=== PATIENT | female | born 1950 | race Caucasian/White ===

== ENCOUNTER 2023-06-09 12:39 | Observation (INO) | payer MEDICARE, OTHER ==
[2023-06-09] VITALS (30 sets, daily range): BP systolic 103–173; BP diastolic 58–90
[~2023-06-09] VITALS: Ht 160 cm; Wt 71.0 kg
[~2023-06-09 12:39] MED LIST: BAYER LOW81 MG OR; CALCIUM + D600 MG OR; CARDIZEM C2 OR; CIPROFLOXACN500 MG PO; FISH OIL1000 MG PO; GNP RED YEAST RICE OR; PRAVACHOL80 MG PO; PREMARIN0.3 MG PO; PROTONIX40 M2 PO; SYNTHROID150 MCG PO; VITAMIN C500 MG OR
[2023-06-09] MEDS ORDERED: methylPREDNISolone SODIUM SUCC 125 MG/2 ML SDV IV ONE (12:55)
--- NOTE | 2023-06-09 13:00 | NUR ---
PT AMBULATED TO ER ROOM 9. C/O SOB SINCE LAST NIGHT. PROVIDER NOTIFIED. CALL LLIGHT WITHIN REACH.
[2023-06-09 13:17] LABS: EOS% 2.4 % (0-8); HEMATOCRIT 38.8 % (37.0-47.0); HEMOGLOBIN 13.2 g/dl (12.0-16.0); IMMATURE GRANULOCYTES 0.4 % (0.0-5.0); LYMPH% 23.9 % (15-41); MEAN CELL VOLUME 83.1 fL CALC (80.0-100.0); MEAN CORPUSCULAR HGB 28.3 pG CALC (26.0-32.0); MONO% 7.1 % (2-13); NEUT# 5.97 thou/uL (2.00-7.15); NEUT% 65.2 % (42-76); RED BLOOD COUNT 4.67 mill/uL (4.20-5.60)
[2023-06-09 13:30] LABS: ALBUMIN 4.8 g/dL (3.2-5.0); ALKALINE PHOSPHATASE 108 u/l (38-126); ANION GAP 16 (6-22 (CALC)); BILIRUBIN, TOTAL 0.5 mg/dL (0.02-1.3); BUN 17 mg/dL (8-23); BUN/CREATININE RATIO 21 (12-20 (CALC)); CARBON DIOXIDE 25 mmol/l (22-30); CHLORIDE 101 mmol/l (95-108); CREATININE 0.8 mg/dL (0.5-1.0); GFR FOR AFR.AMER. > 60 ML/MIN (>=60 (CALC)); GFR OTHER RACES > 60 ML/MIN (>=60 (CALC)); POTASSIUM 3.4 mmol/l (3.5-5.1); SGOT/AST 30 u/l (9-36); SODIUM 138 mmol/l (137-146); TOTAL PROTEIN 8.2 g/dL (6.3-8.2)
[2023-06-09] MEDS ORDERED: LEVOTHYROXIN137 MCG PO (13:36)
[2023-06-09] MEDS ORDERED: CRESTOR10 MG PO (13:38)
[2023-06-09] MEDS ORDERED: HYDROCHLOROTH12.5 MG PO (13:40)
[2023-06-09] MEDS ORDERED: LOSARTAN POTASS25 MG PO (13:41)
[2023-06-09] MEDS ORDERED: METFORMIN500 M2 PO (13:42)
--- NOTE | 2023-06-09 14:00 | NUR ---
pt still feels sob, no apparent distress and vitals are stable, no strider is heard
--- NOTE | 2023-06-09 15:00 | NUR ---
pt alert and oriented, no apparent distress
[2023-06-09 15:01] LABS: URINE BILIRUBIN - DIPSTICK Negative (NEGATIVE); URINE BLOOD DIPSTICK Negative (NEGATIVE); URINE GLUCOSE - DIPSTICK Negative (NEGATIVE); URINE KETONE Negative (NEGATIVE); URINE LEUK ESTERASE Negative (NEGATIVE); URINE NITRITE - DIPSTICK Negative (Negative); URINE PROTEIN - DIPSTICK Negative (NEG-TRACE); URINE UROBILINOGEN - DIPSTICK 0.2 E.U./dL (0.2)
[2023-06-09 15:02] LABS: URINE COLOR Yellow
[2023-06-09] MEDS ORDERED: IPRATROPIUM-Albuterol 0.5MG-2.5MG/3 ML NEB ONE (15:15)
[2023-06-09] MEDS ORDERED: SODIUM CHLORIDE 0.9% 1,000 ML IV ONE (15:30)
[2023-06-09] MEDS ORDERED: AZITHROMYCIN 500 MG in SODIUM CHLORIDE 0.9% 250 ML IV ONE (15:35)
--- NOTE | 2023-06-09 16:00 | NUR ---
pt started on abx, and fluids. pt no apparent distress bedside
[2023-06-09] MEDS ORDERED: ACETAMINOPHEN 325 MG/TAB PO PRN (18:50)
[2023-06-09] MEDS ORDERED: MAGNESIUM HYDROXIDE 30 ML UDC PO PRN (18:50)
[2023-06-09] MEDS ORDERED: SODIUM CHLORIDE 0.9% 1,000 ML IV PRN (18:50)
[2023-06-09] MEDS ORDERED: IPRATROPIUM-Albuterol 0.5MG-2.5MG/3 ML NEB SCH (19:00)
[2023-06-09] MEDS ORDERED: ENOXAPARIN SODIUM 40 MG/0.4 ML SYR SC SCH (21:00)
[2023-06-09] MEDS ORDERED: methylPREDNISolone Sod Succ 40 MG/ML SDV IV SCH (22:00)
[2023-06-10] VITALS (7 sets, daily range): BP systolic 123–166; BP diastolic 51–84
--- NOTE | 2023-06-10 03:16 | NUR ---
PT WAS ADMITTED TO RM [id number], THIS NURSE TRANSPORTED PT TO ROOM BY [facility], AND TELEMETRY WAS PLACED BEFORE LEAVING ER. REPORT WAS GIVEN TO CONCHA. PT TOLERATED MOVE.
[2023-06-10 05:21] LABS: BASO% 0.1 % (0-3); HEMATOCRIT 35.2 % (37.0-47.0); HEMOGLOBIN 12.2 g/dl (12.0-16.0); IMMATURE GRANULOCYTES 0.9 % (0.0-5.0); LYMPH% 7.1 % (15-41); MEAN CELL VOLUME 84.8 fL CALC (80.0-100.0); MEAN CORPUSCULAR HGB 29.4 pG CALC (26.0-32.0); MEAN CORPUSCULAR HGB CONC 34.7 g/dL CAL (32.0-36.0); MONO% 0.5 % (2-13); NEUT# 10.61 thou/uL (2.00-7.15); NEUT% 91.4 % (42-76); RED BLOOD COUNT 4.15 mill/uL (4.20-5.60); RED CELL DISTRI WIDTH 13.3 % (11.5-15.5)
[2023-06-10 05:45] LABS: ANION GAP 14 (6-22 (CALC)); BUN 15 mg/dL (8-23); BUN/CREATININE RATIO 22 (12-20 (CALC)); CARBON DIOXIDE 24 mmol/l (22-30); CHLORIDE 104 mmol/l (95-108); CREATININE 0.7 mg/dL (0.5-1.0); GFR FOR AFR.AMER. > 60 ML/MIN (>=60 (CALC)); GFR OTHER RACES > 60 ML/MIN (>=60 (CALC)); MAGNESIUM 1.1 mg/dL (1.6-2.3); POTASSIUM 3.6 mmol/l (3.5-5.1); SODIUM 138 mmol/l (137-146)
--- NOTE | 2023-06-10 07:00 | NUR ---
REPORT RECEIVED FROM JOSE,RN
--- NOTE | 2023-06-10 08:20 | NUR ---
PT OOB RESTING IN RECLINER,A&O X3;PT DENIES ANY CURRENT PAIN, PAIN SCALE AND REPORTING EDUCATED;RESPIRATIONS EVEN AND UNLABORED ON O2 @ 2L VIA NC;ASSESSMENT COMPLETED;SKIN INTACT;TELE MONITORING IN PLACE;IV SITE PATENT INFUSING NS PER ORDER;PT DENIES ANY ADDITIONAL NEEDS AND IS ENCOURAGED TO CALL FOR ASSISTANCE IF NEEDED;FALL PRECAUTIONS REMAIN IN PLACE WITH CALL LIGHT IN REACH;FREQUENT ROUNDS MADE.
--- NOTE | 2023-06-10 11:25 | NUR ---
PT OOB RESTING IN RECLINER WITH SPOUSE AT BEDSIDE;RESPIRATIONS EVEN AND UNLABORED ON 02 @ 2L VIA NC;PT DENIES ANY CURRENT PAIN OR NEEDS;TELE MONITORING IN PLACE;IV SITE REMAINS PATENT;ENCOURAGED TO CALL FOR ASSISTANCE IF NEEDED;CALL LIGHT IN REACH;FREQUENT ROUNDS MADE.
--- NOTE | 2023-06-10 13:02 | NUR ---
AT BEDSIDE DISCUSSING POC WITH PT AND SPOUSE.
[2023-06-10] MEDS ORDERED: DEXTROSE 250 ML IV PRN (13:10)
[2023-06-10] MEDS ORDERED: CELEBREX100 M1 PO (13:22)
[2023-06-10] MEDS ORDERED: GABAPENTIN400 M2 PO (13:22)
[2023-06-10] MEDS ORDERED: MECLIZINE25 MG PO (13:23)
[2023-06-10] MEDS ORDERED: GABAPENTIN100 MG PO (13:23)
[2023-06-10] MEDS ORDERED: POTASSIUM CHLORIDE 20 MEQ/TAB PO SCH (14:00)
[2023-06-10] MEDS ORDERED: DILTIAZEM HCl COATED BEADS 180 MG/CAP PO SCH (14:00)
[2023-06-10] MEDS ORDERED: ASPIRIN EC 81 MG/TAB PO SCH (14:00)
[2023-06-10] MEDS ORDERED: PANTOPRAZOLE SODIUM Sesquihydr 40 MG/TAB PO SCH (14:00)
[2023-06-10] MEDS ORDERED: MAGNESIUM SULFATE HEPTAHYDRATE 50 ML IV SCH (14:00)
[2023-06-10] MEDS ORDERED: IPRATROPIUM BROMIDE 0.5 MG/2.5 ML SOL IN SCH (15:00)
[2023-06-10] MEDS ORDERED: LEVALBUTEROL HCL 1.25 MG/3 ML VIAL NEB SCH (15:00)
--- NOTE | 2023-06-10 15:30 | NUR ---
PT REMAINS OOB RESTING IN RECLINER;RESPIRATIONS EVEN AND UNLABORED ON O2 @ 2L VIA NC;PT DENIES ANY CURRENT PAIN OR NEEDS;TELE MONITORING IN PLAE;IV SITE PATENT INFUSING NS @ 100ML/HR,SITE APPEARS HEALTHY;PT DENIES ANY ADDITIONAL NEEDS AND IS ENCOURAGED TO CALL FOR ASSISTANCE IF NEEDED;FALL PRECAUTIONS REMAIN IN PLACE WITH CALL LIGHT IN REACH;FREQUENT ROUNDS MADE.
[2023-06-10] MEDS ORDERED: INSULIN LISPRO 100 UNITS/ML ML SC SCH (17:00)
[2023-06-10] MEDS ORDERED: AZITHROMYCIN 500 MG in SODIUM CHLORIDE 0.9% 250 ML IV SCH (18:00)
[2023-06-10] MEDS ORDERED: LOSARTAN Potassium 25 MG/TAB PO SCH (18:00)
[2023-06-10] MEDS ORDERED: ATORVASTATIN CALCIUM 40 MG/TAB PO SCH (21:00)
[2023-06-11 01:12] VITALS: BP 137/63
[2023-06-11 04:27] VITALS: BP 141/69
[2023-06-11] MEDS ORDERED: LEVOTHYROXINE SODIUM 25 MCG/TAB PO SCH (06:00)
[2023-06-11] MEDS ORDERED: LEVOTHYROXINE SODIUM 112 MCG/TAB PO SCH (06:00)
[2023-06-11 06:07] LABS: BASO% 0.1 % (0-3); HEMATOCRIT 32.4 % (37.0-47.0); HEMOGLOBIN 10.9 g/dl (12.0-16.0); IMMATURE GRANULOCYTES 0.9 % (0.0-5.0); MEAN CELL VOLUME 86.4 fL CALC (80.0-100.0); MEAN CORPUSCULAR HGB 29.1 pG CALC (26.0-32.0); MEAN CORPUSCULAR HGB CONC 33.6 g/dL CAL (32.0-36.0); MONO% 5.6 % (2-13); NEUT# 14.76 thou/uL (2.00-7.15); NEUT% 84.4 % (42-76); RED BLOOD COUNT 3.75 mill/uL (4.20-5.60)
[2023-06-11 06:27] LABS: ANION GAP 13 (6-22 (CALC)); BUN 16 mg/dL (8-23); BUN/CREATININE RATIO 22 (12-20 (CALC)); CARBON DIOXIDE 23 mmol/l (22-30); CHLORIDE 107 mmol/l (95-108); CREATININE 0.7 mg/dL (0.5-1.0); GFR FOR AFR.AMER. > 60 ML/MIN (>=60 (CALC)); GFR OTHER RACES > 60 ML/MIN (>=60 (CALC)); POTASSIUM 3.8 mmol/l (3.5-5.1); SODIUM 139 mmol/l (137-146)
--- NOTE | 2023-06-11 06:55 | NUR ---
REPORT RECEIVED FROM SHANE MARIO
[2023-06-11 07:10] VITALS: BP 148/71
[2023-06-11] MEDS ORDERED: SODIUM CHLORIDE 0.9% 500 ML IV SCH (08:30)
[2023-06-11] MEDS ORDERED: methylPREDNISolone Sod Succ 40 MG/ML SDV IV SCH (09:00)
--- NOTE | 2023-06-11 09:40 | NUR ---
PT OOB RESTING IN RECLINER WITH SPOUSE AT BEDSIDE;PT DENIES ANY CURRENT PAIN OR DISCOMFORTS,PAIN SCALE AND REPORTING EDUCATED;RESPIRATIONS EVEN AND UNLABORED ON O2 @ 2L VIA NC;TELE MONITORING IN PLACE;IV SITE TO LAC PATENT INFUSING NS @ 100ML/HR, PER ORDER;ACCUCHECK 131, NO COVERAGE WAS NEEDED;PT ENCOURAGED TO CALL FOR ASSISTANCE IF NEEDED;FALL PRECAUTIONS IN PLACE WITH CALL LIGHT IN REACH;FREQUENT ROUNDS MADE.
--- NOTE | 2023-06-11 09:53 | NUR ---
PT AMBULATING HALLWAYS WITH GUTIERREZ,RT FOR OXYGEN WALK QUALIFICATION TEST.
[2023-06-11 10:22] VITALS: BP 125/62
[2023-06-11] MEDS ORDERED: MAGNESIUM SULFATE HEPTAHYDRATE 50 ML IV SCH (11:30)
[2023-06-11] MEDS ORDERED: POTASSIUM CHLORIDE 20 MEQ/TAB PO SCH (11:30)
--- NOTE | 2023-06-11 11:55 | NUR ---
PT OOB RESTING IN RECLINER WITH SPOUSE AT BEDSIDE;RESPIRATIONS EVEN AND UNLABORED ON RA;PT DENIES ANY CURRENT PAIN OR DISCOMFORTS;TELE MONITORING IN PLACE;IV SITE TO LAC REMAINS PATENT;ACCUCHECK 155, PT COVERED WITH SLIDING SCALE INSULIN PER ORDER;PT ENCOURAGED TO CALL FOR ASSISTANCE IF NEEDED;FALL PRECAUTIONS REMAIN IN PLACE WITH CALL LIGHT IN REACH;FREQUENT ROUNDS MADE.
[2023-06-11] MEDS ORDERED: ALBUTEROL SULFATE 8 GM INH IN PRN (12:55)
[2023-06-11] MEDS ORDERED: ADVAIR DISK1 IN (14:26)
[2023-06-11] MEDS ORDERED: VENTOLIN HFA108 MCG IN (14:26)
[2023-06-11] MEDS ORDERED: SPIRIVA RE2.5 MCG/AC IN (14:26)
[2023-06-11] MEDS ORDERED: DILTIAZEM HCL180 MG PO (14:26)
[2023-06-11] MEDS ORDERED: MONTELUKAST SOD10 MG PO (14:44)
[2023-06-11] MEDS ORDERED: NEBULIZER (14:45)
[2023-06-11] MEDS ORDERED: CEFDINIR300 MG PO (14:45)
[2023-06-11] MEDS ORDERED: ZPAK PO (14:45)
[2023-06-11] MEDS ORDERED: PROVENTIL0.083 % IN (14:47)
--- NOTE | 2023-06-11 15:08 | NUR ---
ALL DISCHARGE INSTRUCTIONS PROVIDED AT THIS TIME TO PT AND SPOUSE.PT INSTRUCTED TO F/U WITH PCP AND PULMONOLOGY. PHONE NUMBER PROVIDED TO AMA FOR A NEW PATIENT;PT INSTRUCTED TO TAKE MEDICATION PRESCRIBED. PT AND SPOUSE VERBALIZE UNDERSTANDING AND DENIES ANY ADDITIONAL QUESTIONS OR NEEDS;IV SITE REMOVED WITH CATHETER INTACT AND TELE MONITORING REMOVED.WC TO BE PROVIDED FOR D/C. SPOUSE TO TRANSPORT PT HOME.
--- NOTE | 2023-06-11 15:12 | NUR ---
Discharge instructions given. Patient verbalizes understanding of same. Discharged in stable condition via Wheelchair to Home with spouse. All belongings sent with pt. PT TRANSPORTED TO [facility] IN STABLE CONDITION VIA ACCOMPANIED BY THIS MUD MIXER OPERATOR AND SPOUSE.ALL PERSONAL BELONGINGS LEFT WITH PT. SPOUSE TO TRANSPORT PT HOME.
[2023-06-11] MEDS ORDERED: AZITHROMYCIN 250 MG/TAB PO SCH (18:00)
[2023-06-11] MEDS ORDERED: FLUTICASONE/SALMETEROL 250 MCG/50 MCG PER DOSE INH IN SCH (21:00)
[2023-06-11] MEDS ORDERED: Cefdinir 300 MG/CAP PO SCH (21:00)
[2023-06-12] MEDS ORDERED: TIOTROPIUM BROMIDE MONOHYDRATE 2.5 MCG/ACT 4 GM INH IN SCH (09:00)
== END 2023-06-11 15:10 | disposition home or self-care (01) ==
LOC: ED 12:39 → ED-I 16:04 → ED 16:31 → MS2 16:32
PROVIDERS: Nurse Practitioner; ADMIT Student in an Organized Health Care Education/Training Program; ATTEND Student in an Organized Health Care Education/Training Program
DX: J18.9 Pneumonia, unspecified organism (principal); R09.02 Hypoxemia; J45.901 Unspecified asthma with (acute) exacerbation; E83.42 Hypomagnesemia; E87.20 Acidosis, unspecified; E87.6 Hypokalemia; I10 Essential (primary) hypertension; E11.9 Type 2 diabetes mellitus without complications; E78.5 Hyperlipidemia, unspecified; Z79.84 Long term (current) use of oral hypoglycemic drugs; Z96.649 Presence of unspecified artificial hip joint
CPT/HCPCS: J1650; J3475; Q9967